=== PATIENT | female | born 1990 | race Hispanic/Latino ===

== ENCOUNTER 2018-10-20 21:34 | Emergency (ER) | payer BC ==
--- NOTE | 2018-10-20 22:30 | ER ---
Nurse's Notes [facility] Name: Rasheeda Vera Age: 28 yrs Sex: Female : 1990 Arrival Date: 10/20/2018 Time: 21:35 Bed 6 Private MD: Sheldon Coley H Diagnosis: Influenza due to certain identified influenza viruses Presentation: 10/20 21:39 Presenting complaint: Patient states: Feeling ill since with sore throat, seen la1 at [place] on and tested for strep and flu which were negative, started with fever, chills, body aches today, two children dx with flu on monday. Transition of care: patient was not received from another setting of care. Onset of symptoms was October 20, 2018. Risk Assessment: Do you want to hurt yourself or someone else? Patient reports no desire to harm self or others. Initial Sepsis Screen: Does the patient meet any 2 criteria? No. Patient's initial sepsis screen is negative. Does the patient have a suspected source of infection? No. Patient's initial sepsis screen is negative. Care prior to arrival: None. 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 - Social history:: Smoking status: Patient/guardian denies using tobacco. - Ebola Screening: : No symptoms or risks identified at this time. Screenin:54 Abuse screen: Denies threats or abuse. Nutritional screening: No deficits noted. tl2 Tuberculosis screening: No symptoms or risk factors identified. Fall Risk None identified. Assessment: 21:54 General: Appears in no apparent distress. uncomfortable, Behavior is calm, cooperative, tl2 appropriate for age. General: Reports chills for 12-24 hours, fever for 12-24 hours, kids were diagnosed with flu. Was tested for flu on but developed fever, chills and body aches today. Pain: Complains of pain in body aches, sore throat. Neuro: Level of Consciousness is awake, alert, obeys commands, Oriented to person, place, time, situation. Cardiovascular: Denies chest pain. Respiratory: Reports cough that is Airway is patent Respiratory effort is even, unlabored, Respiratory pattern is regular, symmetrical. GI: No signs and/or symptoms were reported involving the gastrointestinal system. : No signs and/or symptoms were reported regarding the genitourinary system. Derm: Skin is pink, warm \T\ dry. 22:45 Reassessment: Patient appears in no apparent distress at this time. Patient and/or tl2 family updated on plan of care and expected duration. Pain level reassessed. Patient is alert, oriented x 3, equal unlabored respirations, skin warm/dry/pink. pt verbalized understanding of discharge instructions, need for follow up and prescription usage. Vital Signs: 21:41 BP 130 / 91; Pulse 100; Resp 16; Temp 99.9; Pulse Ox 98% on R/A; Weight 77.11 kg; la1 Height 5 ft. 5 in. (165.10 cm); Pain 10/10; 22:45 Temp 99.6(O); tl2 21:41 Body Mass Index 28.29 (77.11 kg, 165.10 cm) la1 ED Course: 21:35 Patient arrived in ED. am2 21:35 Sheldon Coley DO is Private Physician. am2 21:40 Triage completed. la1 21:41 Arm band placed on left wrist. la1 21:47 [facility] jr8 21:47 Leoncio Zuleta MD is Attending Physician. jr8 21:47 Goyo Allison MD is Attending Physician. jr8 21:53 Tiff Yu, MARIO is Primary Nurse. tl2 21:54 Patient has correct armband on for positive identification. Placed in gown. Bed in low tl2 position. Call light in reach. 21:54 Influenza Screen (a \T\ B) Sent. tl2 21:54 Strep Sent. tl2 21:54 Flu and/or RSV swab sent to lab. Strep swab sent to lab. tl2 22:45 No provider procedures requiring assistance completed. Patient did not have IV access tl2 during this emergency room visit. Administered Medications: 22:41 Drug: Tamiflu 75 mg Route: PO; ea :47 Follow up: Response: No adverse reaction; Medication administered at discharge. tl2 Outcome: :30 Discharge ordered by MD. nagel :45 Discharged to home ambulatory. tl2 :45 Condition: stable :45 Discharge instructions given to patient, Instructed on discharge instructions, follow up and referral plans. medication usage, Demonstrated understanding of instructions, follow-up care, medications, Prescriptions given X 3. :47 Patient left the ED. tl2 Signatures: Jose Wills PA PA jr8 Attema, Lee, RN RN Tiff Alfonso RN RN tl2 Brenda Collado Elena, RN RN radha
--- NOTE | 2018-10-20 22:31 | EDPHYS ---
Physician Documentation [facility] Name: Rasheeda Vera Age: 28 yrs Sex: Female : 1990 Arrival Date: 10/20/2018 Time: 21:35 Bed 6 Private MD: Sheldon Coley H ED Physician Goyo Allison HPI: 10/20 22:12 This 28 yrs old Female presents to ER via Ambulatory with complaints of Flu jr8 Symptoms. 22:12 The patient reports fever, not measured (subjective). Onset: The symptoms/episode jr8 began/occurred acutely, 2 day(s) ago. Modifying factors: The patient has had contact with sick son, at home. Associated signs and symptoms: Pertinent positives: cough, sore throat. Severity of symptoms: At their worst the symptoms were mild in the emergency department the symptoms are unchanged. The patient has not experienced similar symptoms in the past. The patient has not recently seen a physician. 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 - Social history:: Smoking status: Patient/guardian denies using tobacco. - Ebola Screening: : No symptoms or risks identified at this time. ROS: 22:12 Eyes: Negative for injury, pain, redness, and discharge, Neck: Negative for injury, jr8 pain, and swelling, Cardiovascular: Negative for chest pain, palpitations, and edema, Abdomen/GI: Negative for abdominal pain, nausea, vomiting, diarrhea, and constipation, Back: Negative for injury and pain, MS/Extremity: Negative for injury and deformity, Skin: Negative for injury, rash, and discoloration, Neuro: Negative for headache, weakness, numbness, tingling, and seizure. 22:12 Constitutional: Positive for fever. 22:12 ENT: Positive for rhinorrhea, sore throat. 22:12 Respiratory: Positive for cough, Negative for dyspnea on exertion, shortness of breath, sputum production, wheezing. Exam: 22:12 Eyes: Pupils equal round and reactive to light, extra-ocular motions intact. Lids and jr8 lashes normal. Conjunctiva and sclera are non-icteric and not injected. Cornea within normal limits. Periorbital areas with no swelling, redness, or edema. ENT: Nares patent. No nasal discharge, no septal abnormalities noted. Tympanic membranes are normal and external auditory canals are clear. Oropharynx with mild redness. No swelling, or masses, exudates, or evidence of obstruction, uvula midline. Mucous membranes moist. Neck: Trachea midline, no thyromegaly or masses palpated, and no cervical lymphadenopathy. Supple, full range of motion without nuchal rigidity, or vertebral point tenderness. No Meningismus. Cardiovascular: Regular rate and rhythm with a normal S1 and S2. No gallops, murmurs, or rubs. Normal PMI, no JVD. No pulse deficits. Respiratory: Lungs have equal breath sounds bilaterally, clear to auscultation and percussion. No rales, rhonchi or wheezes noted. No increased work of breathing, no retractions or nasal flaring. Abdomen/GI: Soft, non-tender, with normal bowel sounds. No distension or tympany. No guarding or rebound. No evidence of tenderness throughout. Back: No spinal tenderness. No costovertebral tenderness. Full range of motion. Skin: Warm, dry with normal turgor. Normal color with no rashes, no lesions, and no evidence of cellulitis. MS/ Extremity: Pulses equal, no cyanosis. Neurovascular intact. Full, normal range of motion. Neuro: Awake and alert, GCS 15, oriented to person, place, time, and situation. Cranial nerves II-XII grossly intact. Motor strength 5/5 in all extremities. Sensory grossly intact. Cerebellar exam normal. Normal gait. Vital Signs: 21:41 BP 130 / 91; Pulse 100; Resp 16; Temp 99.9; Pulse Ox 98% on R/A; Weight 77.11 kg; la1 Height 5 ft. 5 in. (165.10 cm); Pain 10/10; 22:45 Temp 99.6(O); tl2 21:41 Body Mass Index 28.29 (77.11 kg, 165.10 cm) la1 MDM: 21:47 Patient medically screened. jr8 22:30 Data reviewed: vital signs, nurses notes, lab test result(s), Flu: positive. Data jr8 interpreted: Pulse oximetry: on room air is 98 %. Interpretation: normal. Counseling: I had a detailed discussion with the patient and/or guardian regarding: the historical points, exam findings, and any diagnostic results supporting the discharge/admit diagnosis, lab results, the need for outpatient follow up, a family practitioner, to return to the emergency department if symptoms worsen or persist or if there are any questions or concerns that arise at home. 10/20 21:47 Order name: Influenza Screen (a \T\ B); Complete Time: 22:28 jr8 10/20 21:47 Order name: Strep; Complete Time: 22:28 jr8 10/20 22:26 Order name: Throat Culture EDMS Administered Medications: 22:41 Drug: Tamiflu 75 mg Route: PO; ea 22:47 Follow up: Response: No adverse reaction; Medication administered at discharge. tl2 Disposition: 23:21 Co-signature as Attending Physician, Goyo Allison MD. pkl Disposition: 10/20/18 22:30 Discharged to Home. Impression: Influenza due to certain identified influenza viruses. - Condition is Stable. - Discharge Instructions: Influenza, Adult. - Prescriptions for Claritin- D 12 Hour 5-120 mg Oral Tablet Sustained Release 12 hr - take 1 tablet by ORAL route every 12 hours As needed; 30 tablet. Tamiflu 75 mg Oral Capsule - take 1 capsule by ORAL route every 12 hours for 5 days; 10 capsule. Tessalon Perles 100 mg Oral Capsule - take 1 capsule by ORAL route every 8 hours As needed; 15 capsule. - Medication Reconciliation Form, Thank You Letter, Antibiotic Education, Prescription Opioid Use, Work release form form. - Follow up: Private Physician; When: 2 - 3 days; Reason: Recheck today's complaints, Continuance of care, Re-evaluation by your physician. - Problem is new. - Symptoms have improved. Signatures: Dispatcher [employer] EDMS Goyo Allison MD MD pkl Jose Wills PA PA jr8 Albaro Hughes RN RN Tiff Alfonso RN RN helen2 Kimberlee Juarez RN RN ea Corrections: (The following items were deleted from the chart) 22:47 22:30 10/20/2018 22:30 Discharged to Home. Impression: Influenza due to certain tl2 identified influenza viruses. Condition is Stable. Forms are Medication Reconciliation Form, Thank You Letter, Antibiotic Education, Prescription Opioid Use. Follow up: Private Physician; When: 2 - 3 days; Reason: Recheck today's complaints, Continuance of care, Re-evaluation by your physician. Problem is new. Symptoms have improved. jr8
[2018-10-20] MEDS ORDERED: OSELTAMIVIR 75 MG CAP ONE (22:49)
== END 2018-10-20 22:47 | disposition home or self-care (01) ==
LOC: ER 21:34
DX: J10.1 Influenza due to other identified influenza virus with other respiratory manifestations (principal)
CPT/HCPCS: 87070; 87081; 87804; 99283

== ENCOUNTER 2021-07-30 09:53 | Emergency (ER) | payer BC, SELFPAY ==
[2021-07-30 11:30] LABS: SARS-COV-2 RT PCR NEGATIVE (NEGATIVE)
--- NOTE | 2021-07-30 12:08 | ER ---
Nurse's Notes [facility] Name: Rasheeda Vera Age: 31 yrs Sex: Female : 1990 Arrival Date: 07/30/2021 Time: 09:56 Bed DIS1 Private MD: Sheldon Coley H Diagnosis: Viral illness/syndrome Presentation: 07/30 10:16 Chief complaint: Patient states: about Monday or Monday i started with stuffy nose, tw2 then today body aches. and yesterday cough. today sore throat. nauseous yesterday but never threw up. Coronavirus screen: congestion, cough unrelated to allergies, nausea, runny nose, sore throat, Client presents with at least one sign or symptom that may indicate coronavirus-19. Standard/surgical mask placed on the client. Provider contacted for isolation considerations. Ebola Screen: Patient denies travel to an Ebola-affected area in the 21 days before illness onset. Initial Sepsis Screen: Does the patient meet any 2 criteria? HR > 90 bpm. Does the patient have a suspected source of infection? No. Patient's initial sepsis screen is negative. Risk Assessment: Do you want to hurt yourself or someone else? Patient reports no desire to harm self or others. Onset of symptoms was July 30, 2021. 10:16 Method Of Arrival: Ambulatory tw2 10:16 Acuity: NANDO 4 tw2 Triage Assessment: 10:18 General: Appears in no apparent distress. Behavior is calm, cooperative, appropriate tw2 for age. Pain: Complains of pain in uvula, left aspect of posterior pharynx and right aspect of posterior pharynx. EENT: Reports nasal congestion nasal discharge. Respiratory: Reports cough that is. 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 Flu vaccine is not up to date. - Social history:: Smoking status: Patient reports the use of cigarette tobacco products, 2 cigarettes a day, Patient uses alcohol, only on a social basis. Screenin:06 Abuse screen: Denies threats or abuse. Denies injuries from another. Nutritional ss screening: No deficits noted. Tuberculosis screening: Never had TB. Fall Risk None identified. Assessment: 12:06 General: Appears in no apparent distress. Behavior is calm, cooperative. Pain: Pain ss currently is 6 out of 10 on a pain scale. Quality of pain is described as aching. Neuro: Level of Consciousness is awake, alert, obeys commands. Cardiovascular: Capillary refill < 3 seconds is brisk in bilateral fingers. Respiratory: Airway is patent Respiratory effort is even, unlabored, Respiratory pattern is regular, symmetrical. GI: No signs and/or symptoms were reported involving the gastrointestinal system. EENT: Throat is clear. Derm: Skin is pink, warm \T\ dry. normal. Musculoskeletal: Circulation, motion, and sensation intact. Range of motion: intact in all extremities, Swelling absent. Vital Signs: 10:18 BP 139 / 108; Pulse 113; Resp 17; Temp 97.8(TE); Pulse Ox 99% on R/A; Weight 75.75 kg tw2 (R); Height 5 ft. 5 in. (165.10 cm) (R); Pain 6/10; 10:18 Body Mass Index 27.79 (75.75 kg, 165.10 cm) tw2 ED Course: 09:56 Patient arrived in ED. am2 09:57 Sheldon Coley DO is Private Physician. am2 10:18 Triage completed. tw2 10:18 Arm band placed on. tw2 11:58 Justin Jara MD is Attending Physician. sp3 12:06 Melanie Metzger, MARIO is Primary Nurse. ss 12:06 Patient has correct armband on for positive identification. Bed in low position. Call ss light in reach. 12:06 No provider procedures requiring assistance completed. Patient did not have IV access ss during this emergency room visit. Administered Medications: No medications were administered Outcome: 12:06 Discharged to home ambulatory. ss 12:06 Condition: good 12:06 Discharge instructions given to patient, family, Instructed on discharge instructions, follow up and referral plans. Demonstrated understanding of instructions, follow-up care. 12:08 Discharge ordered by . sp3 12:20 Patient left the ED. ss Signatures: Melanie Metzger RN RN ss Bia Ponce RN RN tw2 Brenda Collado am2 Justin Jara MD MD sp3
--- NOTE | 2021-07-30 12:08 | EDPHYS ---
Physician Documentation [facility] Name: Rasheeda Vera Age: 31 yrs Sex: Female : 1990 Arrival Date: 07/30/2021 Time: 09:56 Bed DIS1 Private MD: Sheldon Coley H ED Physician Justin Jara HPI: 07/30 12:04 This 31 yrs old Female presents to ER via Ambulatory with complaints of Flu sp3 Symptoms, bodyaches. 12:04 31-year-old female with no significant past medical history presents with flulike sp3 symptoms including cough, congestion, sore throat for several days. No other symptoms including headache, chest pain, back pain, dysuria, UTI symptoms, rash, fever, any other ROS at this time. Patient states she wanted a COVID-19 test. She is not vaccinated but states that she is going to go and take her first dose soon.. 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 Flu vaccine is not up to date. - Social history:: Smoking status: Patient reports the use of cigarette tobacco products, 2 cigarettes a day, Patient uses alcohol, only on a social basis. ROS: 12:06 Neck: Negative for injury, pain, and swelling, Cardiovascular: Negative for chest pain, sp3 palpitations, and edema, Abdomen/GI: Negative for abdominal pain, nausea, vomiting, diarrhea, and constipation, Back: Negative for injury and pain, MS/Extremity: Negative for injury and deformity, Skin: Negative for injury, rash, and discoloration, Neuro: Negative for headache, weakness, numbness, tingling, and seizure, Endocrine: Negative for neck swelling, polydipsia, polyuria, polyphagia, and marked weight changes, Hematologic/Lymphatic: Negative for swollen nodes, abnormal bleeding, and unusual bruising. 12:06 All other systems are negative. Exam: 12:06 Constitutional: This is a well developed, well nourished patient who is awake, alert, sp3 and in no acute distress. Head/Face: Normocephalic, atraumatic. Eyes: Pupils equal round and reactive to light, extra-ocular motions intact. Lids and lashes normal. Conjunctiva and sclera are non-icteric and not injected. Cornea within normal limits. Periorbital areas with no swelling, redness, or edema. ENT: Nares patent. No nasal discharge, no septal abnormalities noted. External auditory canals are clear. Oropharynx with no redness, swelling, or masses, exudates, or evidence of obstruction, uvula midline. Mucous membranes moist. Neck: Trachea midline, no thyromegaly or masses palpated, and no cervical lymphadenopathy. Supple, full range of motion without nuchal rigidity, or vertebral point tenderness. No Meningismus. Chest/axilla: Normal chest wall appearance and motion. Nontender with no deformity. No lesions are appreciated. Cardiovascular: Regular rate and rhythm with a normal S1 and S2. No gallops, murmurs, or rubs. Normal PMI, no JVD. No pulse deficits. Respiratory: Lungs have equal breath sounds bilaterally, clear to auscultation and percussion. No rales, rhonchi or wheezes noted. No increased work of breathing, no retractions or nasal flaring. Abdomen/GI: Soft, non-tender, with normal bowel sounds. No distension or tympany. No guarding or rebound. No evidence of tenderness throughout. Back: No spinal tenderness. No costovertebral tenderness. Full range of motion. Skin: Warm, dry with normal turgor. Normal color with no rashes, no lesions, and no evidence of cellulitis. MS/ Extremity: Pulses equal, no cyanosis. Neurovascular intact. Full, normal range of motion. Neuro: Awake and alert, GCS 15, oriented to person, place, time, and situation. Cranial nerves II-XII grossly intact. Motor strength 5/5 in all extremities. Sensory grossly intact. Cerebellar exam normal. Normal gait. Psych: Awake, alert, with orientation to person, place and time. Behavior, mood, and affect are within normal limits. 12:06 Cardiovascular: Tachycardia resolved. Vital Signs: 10:18 BP 139 / 108; Pulse 113; Resp 17; Temp 97.8(TE); Pulse Ox 99% on R/A; Weight 75.75 kg tw2 (R); Height 5 ft. 5 in. (165.10 cm) (R); Pain 6/10; 10:18 Body Mass Index 27.79 (75.75 kg, 165.10 cm) tw2 MDM: 12:02 Patient medically screened. sp3 12:06 Data reviewed: vital signs, nurses notes. ED course: 31-year-old female with sp3 URI/flulike symptoms. COVID-19 test is negative, and strep test is negative as well. We will diagnosed with viral syndrome and discharged patient home with supportive care with [id number] medications and ibuprofen. I am not highly suspicious for pneumonia, UTI, any other infectious process at this time. Patient to follow-up with her PCP as needed.. 07/30 10:22 Order name: COVID-19/FLU A+B (Document "Date of Onset" if Symptomatic) tw2 07/30 10:22 Order name: Strep tw2 07/30 10:22 Order name: COVID-19/FLU A+B; Complete Time: 12:00 EDMS 07/30 10:22 Order name: Group A Streptococcus Rapid Sc; Complete Time: 12:00 EDMS 07/30 11:28 Order name: Throat Culture EDMS Administered Medications: No medications were administered Disposition Summary: 07/30/21 12:08 Discharge Ordered Location: Home sp3 Condition: Stable sp3 Diagnosis - Viral illness/syndrome sp3 Followup: sp3 - With: Private Physician - When: As needed - Reason: Continuance of care Discharge Instructions: - Discharge Summary Sheet sp3 - Viral Illness, Adult sp3 Forms: - Medication Reconciliation Form sp3 - Thank You Letter sp3 - Antibiotic Education sp3 - Prescription Opioid Use sp3 Signatures: Dispatcher [employer] EDMS Bia Ponce RN RN tw2 Justin Jara MD MD sp3
[2021-07-30 12:49] VITALS: BP 139/108; TEMP 97.8; O2SAT 99
== END 2021-07-30 12:20 | disposition home or self-care (01) ==
LOC: ER 09:53
DX: B34.9 Viral infection, unspecified (principal); Z20.822 Contact with and (suspected) exposure to COVID-19; F17.210 Nicotine dependence, cigarettes, uncomplicated
CPT/HCPCS: 0240U; 87070; 87081; 99281

== ENCOUNTER 2021-11-10 14:13 | Emergency (ER) | payer BC, SELFPAY ==
[2021-11-10 15:07] LABS: Urine Blood 2+ (Negative); Urine Glucose Negative (Negative); Urine Protein Negative (Negative); Urine Specific Gravity <=1.005 (1.005-1.030); Urine pH 5.5 (5.0-7.0)
[2021-11-10 15:32] LABS: Absolute Lymphocytes (CBC) 1.8 K/uL (0.7-4.9); Hematocrit 38.4 % (36.0-45.0); RBC Red Blood Cell Count 4.16 M/uL (3.86-4.86)
[2021-11-10 15:33] LABS: Urine Bacteria NONE SEEN /HPF (<20); Urine RBC NONE SEEN /HPF (NONE SEEN)
[2021-11-10 15:51] LABS: BUN Blood Urea Nitrogen 12 mg/dL (7-18); Bicarbonate 25 mmol/L (21-32); Glucose Level 88 mg/dL (74-106); Potassium 3.6 mmol/L (3.5-5.1); Sodium Level 139 mmol/L (136-145)
[2021-11-10 15:54] LABS: HCG, Quantitative < 1 mIU/mL (1-3)
--- NOTE | 2021-11-10 17:53 | EDPHYS ---
Physician Documentation [facility] Name: Rasheeda Vera Age: 31 yrs Sex: Female : 1990 Arrival Date: 11/10/2021 Time: 14:15 Bed 17 Private MD: Sheldon Coley H ED Physician Alejandro Swanson HPI: 11/10 14:50 This 31 yrs old Female presents to ER via Ambulatory with complaints of cp Abdominal Cramping, poss preg. 14:53 The patient presents with vaginal bleeding that is with clots, a desire for a cp test. Onset: The symptoms/episode began/occurred today. Associated signs and symptoms: Pertinent positives: cramping. Severity of symptoms: in the emergency department the symptoms have improved, mildly. The patient's method of control includes nothing. 14:55 Patient reports history of irregular menses and concerned about possibility of being cp . Has not taken home test. [employer]: 14:32 LMP 09/22/2021 vg1 14:53 1, Full Term 1, Living 1, LMP 09/23/2021 cp Historical: - Allergies: 14:32 No Known Allergies; vg1 - Home Meds: 14:32 None [Active]; vg1 - PMHx: 14:32 PCOS; vg1 - PSHx: 14:32 Tummy tuck; vg1 - Immunization history:: Client reports receiving the 2nd dose of the Covid vaccine. - Social history:: Smoking status: Patient reports the use of cigarette tobacco products, denies chronic smoking, but will smoke occasionally. ROS: 15:00 Constitutional: Negative for body aches, chills, fever, poor PO intake. cp 15:00 ENT: Negative for ear pain, sore throat, difficulty swallowing, difficulty handling cp secretions. 15:00 Cardiovascular: Negative for chest pain, edema, palpitations. 15:00 Respiratory: Negative for cough, shortness of breath, wheezing. 15:00 Abdomen/GI: Positive for abdominal cramps, Negative for nausea, vomiting, diarrhea, constipation. 15:00 : Positive for vaginal bleeding, Negative for urinary symptoms. 15:00 Neuro: Negative for altered mental status, dizziness, headache, weakness. 15:00 All other systems are negative. Exam: 15:05 Constitutional: The patient appears in no acute distress, alert, awake, comfortable, cp non-toxic, well developed, well nourished. 15:05 Head/Face: Normocephalic, atraumatic. cp 15:05 Eyes: Periorbital structures: appear normal, Conjunctiva: normal, no exudate, no injection, Sclera: no appreciated abnormality, Lids and lashes: appear normal, bilaterally. 15:05 ENT: External ear(s): are unremarkable, Nose: is normal, Mouth: Lips: moist, Oral mucosa: moist, Posterior pharynx: Airway: no evidence of obstruction, patent. 15:05 Chest/axilla: Inspection: normal. 15:05 Cardiovascular: Rate: normal, Rhythm: regular. 15:05 Respiratory: the patient does not display signs of respiratory distress, Respirations: normal, no use of accessory muscles, no retractions, labored breathing, is not present. 15:05 Abdomen/GI: Inspection: abdomen appears normal, Palpation: abdomen is soft and non-tender, in all quadrants, rebound tenderness, is not appreciated, involuntary guarding, is not appreciated. 15:05 Back: pain, is absent, ROM is normal. 15:05 Neuro: Orientation: to person, place \T\ time. Mentation: is normal. Vital Signs: 14:29 BP 118 / 97; Pulse 100; Resp 16; Temp 98.7; Pulse Ox 100% ; Weight 75.75 kg; Height 5 vg1 ft. 5 in. (165.10 cm); Pain 4/10; 16:47 Pulse 88; Resp 18 S; Pulse Ox 100% on R/A; jd3 18:03 BP 116 / 88; Pulse 87; Resp 18 S; Pulse Ox 100% on R/A; jd3 14:29 Body Mass Index 27.79 (75.75 kg, 165.10 cm) vg1 MDM: 14:35 Patient medically screened. chelsea 15:00 Differential diagnosis: ectopic , menorrhea, molar preganancy, uterine cp fibroids, urinary tract infection, vaginosis. 17:51 Data reviewed: vital signs, nurses notes, lab test result(s), radiologic studies, cp ultrasound. 17:51 Counseling: I had a detailed discussion with the patient and/or guardian regarding: the cp historical points, exam findings, and any diagnostic results supporting the discharge/admit diagnosis, lab results, radiology results, the need for outpatient follow up, an OB/Gyne specialist, to return to the emergency department if symptoms worsen or persist or if there are any questions or concerns that arise at home. Response to treatment: the patient's symptoms have mildly improved after treatment, and as a result, I will discharge patient. 11/10 14:45 Order name: Urine Microscopic Only; Complete Time: 16:32 cp 11/10 15:07 Order name: Urine Dipstick-Ancillary; Complete Time: 16:32 EDMS 11/10 15:09 Order name: Basic Metabolic Panel; Complete Time: 16:32 cp 11/10 15:09 Order name: CBC with Diff; Complete Time: 16:32 cp 11/10 15:09 Order name: Quantitative Hcg; Complete Time: 16:32 cp 11/10 15:09 Order name: Rh Type cp 11/10 14:45 Order name: Urine Dipstick-Ancillary (obtain specimen); Complete Time: 15:09 cp 11/10 14:45 Order name: Urine Test (obtain specimen); Complete Time: 15:09 cp 11/10 15:09 Order name: IV Saline Lock; Complete Time: 15:21 cp 11/10 15:09 Order name: Labs collected and sent; Complete Time: 15:21 cp 11/10 15:09 Order name: NPO; Complete Time: 15:11 cp 11/10 16:33 Order name: US Transvaginal Study (Probe); Complete Time: 18:00 cp 11/10 18:01 Interpretation: Reviewed report. cp Administered Medications: No medications were administered Disposition Summary: 11/10/21 17:52 Discharge Ordered Location: Home cp Problem: new cp Symptoms: have improved cp Condition: Stable cp Diagnosis - Abnormal uterine and vaginal bleeding, unspecified cp Followup: cp - With: Private Physician - When: 1 week - Reason: Recheck today's complaints Discharge Instructions: - Discharge Summary Sheet cp - Abnormal Uterine Bleeding cp Forms: - Medication Reconciliation Form cp - Thank You Letter cp - Antibiotic Education cp - Prescription Opioid Use cp Prescriptions: - Ibuprofen 800 mg Oral Tablet - take 1 tablet by ORAL route every 8 hours As needed take with food; 30 tablet; cp Refills: 0, Product Selection Permitted Addendum: 11/12/2021 07:49 Co-signature as Attending Physician, Alejandro RAMIREZ I agree with the assessment and c sanford plan of care. Signatures: Dispatcher [employer] Alejandro Orellana MD MD cha Page, Corey, Callie Grimes cp, RN RN vg1
--- NOTE | 2021-11-10 17:53 | ER ---
Nurse's Notes [facility] Name: Rasheeda eVra Age: 31 yrs Sex: Female : 1990 Arrival Date: 11/10/2021 Time: 14:15 Bed 17 Private MD: Sheldon Coley H Diagnosis: Abnormal uterine and vaginal bleeding, unspecified Presentation: 11/10 14:29 Chief complaint: Patient states: about an hour ago pt went to use the restroom and vg1 noticed a blood clot; states spotting bright red blood. Denies N/V. Pt c/o LLQ ABD pain. Coronavirus screen: Vaccine status: Patient reports receiving the 2nd dose of the covid vaccine. Client denies travel out of the [place] in the last 14 days. Ebola Screen: Patient negative for fever greater than or equal to 101.5 degrees Fahrenheit, and additional compatible Ebola Virus Disease symptoms. Initial Sepsis Screen: Does the patient meet any 2 criteria? No. Patient's initial sepsis screen is negative. Does the patient have a suspected source of infection? No. Patient's initial sepsis screen is negative. Risk Assessment: Do you want to hurt yourself or someone else? Patient reports no desire to harm self or others. Onset of symptoms was November 10, 2021. 14:29 Method Of Arrival: Ambulatory vg1 14:29 Acuity: NANDO 3 vg1 Triage Assessment: 14:32 General: Appears in no apparent distress. uncomfortable, Behavior is calm, cooperative. vg1 Pain: Complains of pain in left lower quadrant. GI: Abdomen is round non-distended. MDM SR: 14:32 LMP 09/22/2021 vg1 14:53 1, Full Term 1, Living 1, LMP 09/23/2021 cp Historical: - Allergies: 14:32 No Known Allergies; vg1 - Home Meds: 14:32 None [Active]; vg1 - PMHx: 14:32 PCOS; vg1 - PSHx: 14:32 Tummy tuck; vg1 - Immunization history:: Client reports receiving the 2nd dose of the Covid vaccine. - Social history:: Smoking status: Patient reports the use of cigarette tobacco products, denies chronic smoking, but will smoke occasionally. Screenin:11 Abuse screen: Denies threats or abuse. Nutritional screening: No deficits noted. jd3 Tuberculosis screening: No symptoms or risk factors identified. Fall Risk Ambulatory Aid- None/Bed Rest/Nurse Assist (0 pts). Gait- Normal/Bed Rest/Wheelchair (0 pts) Mental Status- Oriented to own ability (0 pts). Total Romero Fall Scale indicates No Risk (0-24 pts). Assessment: 15:09 General: Appears in no apparent distress. comfortable, Behavior is calm, cooperative, jd3 appropriate for age. Pain: Complains of pain in chest and abdomen Quality of pain is described as aching. Neuro: Level of Consciousness is awake, alert, obeys commands, Oriented to person, place, time, situation. Cardiovascular: Capillary refill < 3 seconds Patient's skin is warm and dry. Respiratory: Airway is patent Respiratory effort is even, unlabored, Respiratory pattern is regular, symmetrical, Denies cough, shortness of breath. GI: Abdomen is non-distended, Abd is soft and non tender X 4 quads. Reports lower abdominal pain, cramping. : Reports vaginal bleeding that is with clots. EENT: No signs and/or symptoms were reported regarding the EENT system. Derm: Skin is intact, Skin is dry, Skin is normal, Skin temperature is warm. Musculoskeletal: Circulation, motion, and sensation intact. Range of motion: intact in all extremities. 16:47 Reassessment: Patient appears in no apparent distress at this time. Patient and/or jd3 family updated on plan of care and expected duration. Pain level reassessed. Patient is alert, oriented x 3, equal unlabored respirations, skin warm/dry/pink. 18:02 Reassessment: Patient appears in no apparent distress at this time. Patient and/or jd3 family updated on plan of care and expected duration. Pain level reassessed. Patient is alert, oriented x 3, equal unlabored respirations, skin warm/dry/pink. even and steady gait upon discharge. reported understanding of discharge instructions. Vital Signs: 14:29 BP 118 / 97; Pulse 100; Resp 16; Temp 98.7; Pulse Ox 100% ; Weight 75.75 kg; Height 5 vg1 ft. 5 in. (165.10 cm); Pain 4/10; 16:47 Pulse 88; Resp 18 S; Pulse Ox 100% on R/A; jd3 18:03 BP 116 / 88; Pulse 87; Resp 18 S; Pulse Ox 100% on R/A; jd3 14:29 Body Mass Index 27.79 (75.75 kg, 165.10 cm) vg1 ED Course: 14:15 Patient arrived in ED. am2 14:15 Sheldon Coley DO is Private Physician. am2 14:16 Alejandro Miller PA is PHCP. cp 14:16 Alejandro Swanson MD is Attending Physician. cp 14:32 Triage completed. vg1 14:32 Arm band placed on. vg1 14:56 Adan Sutton, RN is Primary Nurse. jd3 15:11 Patient has correct armband on for positive identification. Placed in gown. Bed in low jd3 position. Call light in reach. Side rails up X 1. Adult w/ patient. Pulse ox on. NIBP on. 15:21 Inserted saline lock: 20 gauge in right antecubital area, using aseptic technique. jd3 Blood collected. 17:40 US Transvaginal Study (Probe) In Process Unspecified. EDMS 18:03 No provider procedures requiring assistance completed. IV discontinued, intact, jd3 bleeding controlled, No redness/swelling at site. Pressure dressing applied. Administered Medications: No medications were administered Outcome: 17:52 Discharge ordered by MD. cp 18:03 Discharged to home ambulatory, with family. jd3 18:03 Condition: stable 18:03 Discharge instructions given to patient, Instructed on discharge instructions, follow up and referral plans. medication usage, Demonstrated understanding of instructions, follow-up care, medications, Prescriptions given X 1. 18:04 Patient left the ED. jd3 Signatures: Dispatcher [employer] EDRI Alejandro Miller PA PA cp Moreno, Amanda am2 Adan Sutton RN RN jCallie Gaspar RN RN vg1 Corrections: (The following items were deleted from the chart) 14:33 14:29 Chief complaint: Patient states: about an hour ago pt went to use the restroom vg1 and noticed a blood clot; states spotting bright red blood. Denies N/V vg1
--- NOTE | 2021-11-10 17:59 | RAD REPORT ---
EXAM DESCRIPTION: US - Transvaginal Study Probe - 11/10/2021 5:38 pm CLINICAL HISTORY: Vaginal bleeding COMPARISON: 2017 FINDINGS: The uterus measures 7 x 3 x 3cm. A fibroid is not seen. Nabothian cysts within the cervix. The endometrial stripe measures 7 millimeters The ovaries are normal in size and echotexture. The right and left adnexal unremarkable No significant free fluid is seen. IMPRESSION: Unremarkable pelvic ultrasound
[2021-11-11 01:34] VITALS: TEMP 98.7; O2SAT 100
[2021-11-11 01:37] VITALS: BP 116/88
== END 2021-11-10 18:04 | disposition home or self-care (01) ==
LOC: ER 14:13
DX: N93.9 Abnormal uterine and vaginal bleeding, unspecified (principal); F17.210 Nicotine dependence, cigarettes, uncomplicated
CPT/HCPCS: 36415; 76830; 80048; 81003; 81015; 84702; 85025; 99284